=== PATIENT | female | born 1945 | race Caucasian/White ===

== ENCOUNTER → 2018-01-07 | Outpatient (CLI) | payer OTHER, MEDICARE ==
[~2018-01-07] MED LIST: ASCO10003 PO; ASPEC325 PO; ATEN-173 PO; CALCTAB5 PO; DOCU-94 PO; ESCI1TAB6 PO; LUTE20TA PO; MULT-506 PO; OXYSR10 PO
== END | disposition home or self-care (01) ==
LOC: C.PAPS 08:31
PROVIDERS: ATTEND Family Medicine
DX: Z12.4 Encounter for screening for malignant neoplasm of cervix (principal)